=== PATIENT | female | born 1960 | race African-American/Black ===

== ENCOUNTER 2016-09-02 09:31 | Observation (INO) | payer OTHER ==
[~2016-09-02] VITALS: Ht 165.1 cm; Wt 108.0 kg
[~2016-09-02 09:31] MED LIST: CARDURA XL4 MG PO; DIFLUCAN100 MG PO; FLONASE16 GM NS; GLIMEPIRIDE2 MG PO; JANUMET PO; LASIX; LOZOL1.25 MG PO; METFORMIN; PRILOSEC; Q-VAR; QUAR IH; SINGULAIR; SINGULAIR10 MG PO; STARLIX60 MG PO; SYMBICORT60 INHALAT IH; VERAPAMIL; VERAPAMIL ER300 MG PO; ZANT; ZYRTEC; [UNRECOGNIZED DRUG - OTHER]
[2016-09-02 09:57] LABS: HEMATOCRIT 35.3 % (36.0-46.0); MCH 29.4 PG (29.0-34.0); MCV 91.9 FL (83-99); MEAN PLAT.VOLUME 9.3 uM^3 (9.5-12.4); PLATELET COUNT 261 K/uL (156-360); RBC DIS.WIDTH-CV 13.2 % (11.8-14.6); RBC DIS.WIDTH-SD 44.1 % (39-53); RED BLOOD COUNT 3.84 M/uL (3.80-5.20); WHITE BLOOD COUNT 10.1 K/uL (4.1-10.2)
[2016-09-02 10:09] LABS: CHLORIDE 105 mEq/L (99-109); SODIUM 136 mEq/L (136-147)
[2016-09-02 10:11] LABS: GLUCOSE 136 mg/dL (70-99)
[2016-09-02 10:12] LABS: ANION GAP 7 MEQ/L (2-14)
[2016-09-02 10:15] LABS: GFR ESTIMATE (CALCULATED) > 59 mL/min/
[2016-09-02 10:16] LABS: UREA NITROGEN (BUN) 10 mg/dL (9-23)
[2016-09-02 10:19] LABS: TROP-I INTERPRETATION NEGATIVE; TROPONIN-I < 0.01 ng/mL (0.0-0.30)
[2016-09-02] MEDS ORDERED: PYLERA CAPSULE1 EACH PO (13:05)
[2016-09-02] MEDS ORDERED: TOPROL XL50 MG PO (13:05)
[2016-09-02] MEDS ORDERED: LASIX20 MG PO (13:06)
[2016-09-02] MEDS ORDERED: HYDROCHLOROTHIA25 MG PO (13:06)
[2016-09-02] MEDS ORDERED: ELIQUIS5 MG PO (13:06)
[2016-09-02] MEDS ORDERED: CARDURA XL8 MG PO (13:07)
[2016-09-02] MEDS ORDERED: BREO ELLIPTA I1 EACH IH (13:07)
[2016-09-02 13:13] VITALS: BP 130/93
[2016-09-02] MEDS ORDERED: ALLEGRA-D 121 TABLET PO (13:15)
[2016-09-02] MEDS ORDERED: PROTONIX40 MG PO (13:18)
[2016-09-02 15:33] VITALS: BP 131/86
[2016-09-02 16:27] LABS: TROP-I INTERPRETATION NEGATIVE; TROPONIN-I < 0.01 ng/mL (0.0-0.30)
[2016-09-02 22:33] LABS: TROP-I INTERPRETATION NEGATIVE; TROPONIN-I 0.01 ng/mL (0.0-0.30)
[2016-09-02 23:50] VITALS: BP 145/91
[2016-09-03 04:04] VITALS: BP 145/95
[2016-09-03 06:31] LABS: HEMATOCRIT 37.2 % (36.0-46.0); MCH 29.4 PG (29.0-34.0); MCHC 32.3 G/DL (30.0-36.0); MCV 91.2 FL (83-99); MEAN PLAT.VOLUME 9.5 uM^3 (9.5-12.4); PLATELET COUNT 277 K/uL (156-360); RBC DIS.WIDTH-CV 13.1 % (11.8-14.6); RBC DIS.WIDTH-SD 43.3 % (39-53); RED BLOOD COUNT 4.08 M/uL (3.80-5.20); WHITE BLOOD COUNT 9.8 K/uL (4.1-10.2)
[2016-09-03 07:09] LABS: ANION GAP 11 MEQ/L (2-14); CHLORIDE 102 MEQ/L (99-109); GFR ESTIMATE (CALCULATED) > 59 mL/min/; HDL CHOLESTEROL 30 MG/DL (Desirable>=50); LDL CHOLESTEROL 53 mg/dL (Desirable<100); NON-HDL CHOLESTEROL 63 mg/dL (Desirable<160); POTASSIUM 3.5 MEQ/L (3.7-5.4); SAMPLE HEMOLYSIS CHECK 0; SAMPLE ICTERIC CHECK 0; SAMPLE LIPEMIA CHECK 0; TOTAL CHOLESTEROL 93 mg/dL (Desirable<200); TRIGLYCERIDES 51 MG/DL (Normal: <150); UREA NITROGEN (BUN) 13 mg/dL (9-23)
[2016-09-03 07:10] LABS: GLUCOSE 76 mg/dL (70-99); SODIUM 143 MEQ/L (136-147)
[2016-09-03 07:12] LABS: Estimated Average Glucose 128 mg/dL (70-123); HEMOGLOBIN A1c (GLYCOHEMOGLOB) 6.1 % HGB (Below 5.7)
[2016-09-03 07:59] VITALS: BP 133/100
[2016-09-03] MEDS ORDERED: LOPRESSOR50 MG PO (10:29)
[2016-09-03] MEDS ORDERED: LASIX40 MG PO (10:29)
[2016-09-03] MEDS ORDERED: DIGOXIN250 MCG PO (10:29)
[2016-09-03] MEDS ORDERED: K-DUR20 MEQ PO (10:32)
[2016-09-03 11:13] VITALS: BP 123/80
== END 2016-09-03 13:04 | disposition home or self-care (01) ==
LOC: EME 09:31 → EDOF 11:55 → 5WEST 11:55
PROVIDERS: Internal Medicine; Internal Medicine Cardiovascular Disease
DX: I50.9 Heart failure, unspecified (principal); I48.91 Unspecified atrial fibrillation; Z79.01 Long term (current) use of anticoagulants; J45.909 Unspecified asthma, uncomplicated; F32.9 Major depressive disorder, single episode, unspecified; E11.9 Type 2 diabetes mellitus without complications; I10 Essential (primary) hypertension; K21.9 Gastro-esophageal reflux disease without esophagitis; Z88.1 Allergy status to other antibiotic agents; Z88.0 Allergy status to penicillin; Z88.2 Allergy status to sulfonamides; I25.10 Atherosclerotic heart disease of native coronary artery without angina pectoris; E66.9 Obesity, unspecified; E78.5 Hyperlipidemia, unspecified; Z68.41 Body mass index [BMI] 40.0-44.9, adult
CPT/HCPCS: 71020; 80048; 80061; 83036; 83880; 84443; 84484; 85027; 93005; 94640; 99202; 99281; 99285; G0378; J1160; J1940

== ENCOUNTER 2017-01-08 02:09 | Emergency (ER) | payer OTHER ==
[~2017-01-08] VITALS: Ht 165.1 cm; Wt 100.7 kg
[~2017-01-08 02:09] MED LIST changes: +ALLEGRA-D 121 TABLET PO; +BREO ELLIPTA I1 EACH IH; +CARDURA XL8 MG PO; +DIGOXIN250 MCG PO; +ELIQUIS5 MG PO; +HYDROCHLOROTHIA25 MG PO; +K-DUR20 MEQ PO; +LASIX20 MG PO; +LASIX40 MG PO; +LOPRESSOR50 MG PO; +PROTONIX40 MG PO; +PYLERA CAPSULE1 EACH PO; +TOPROL XL50 MG PO
[2017-01-08 04:08] LABS: HEMATOCRIT 40.1 % (36.0-46.0); MCH 28.6 PG (29.0-34.0); MCHC 32.4 G/DL (30.0-36.0); MCV 88.1 FL (83-99); MEAN PLAT.VOLUME 9.4 uM^3 (9.5-12.4); PLATELET COUNT 282 K/uL (156-360); RBC DIS.WIDTH-CV 13.7 % (11.8-14.6); RBC DIS.WIDTH-SD 44.4 % (39-53); RED BLOOD COUNT 4.55 M/uL (3.80-5.20); WHITE BLOOD COUNT 14.1 K/uL (4.1-10.2)
[2017-01-08 04:19] LABS: CHLORIDE 105 mEq/L (99-109); POTASSIUM 4.1 mEq/L (3.7-5.4); SODIUM 138 mEq/L (136-147)
[2017-01-08 04:20] LABS: GLUCOSE 146 mg/dL (70-99)
[2017-01-08 04:22] LABS: ANION GAP 11 MEQ/L (2-14)
[2017-01-08 04:24] LABS: GFR ESTIMATE (CALCULATED) > 59 mL/min/
[2017-01-08 04:25] LABS: UREA NITROGEN (BUN) 11 mg/dL (9-23)
[2017-01-08 06:16] VITALS: BP 171/116
== END 2017-01-08 06:56 | disposition short-term general hospital (02) ==
LOC: EME 02:09
PROVIDERS: Physician Assistant
DX: S05.32XA Ocular laceration without prolapse or loss of intraocular tissue, left eye, initial encounter (principal); W22.8XXA Striking against or struck by other objects, initial encounter; I10 Essential (primary) hypertension; Z94.7 Corneal transplant status; Z88.0 Allergy status to penicillin; Z88.8 Allergy status to other drugs, medicaments and biological substances
CPT/HCPCS: 70480; 80048; 85027; 99281; 99284